=== PATIENT | female | born 1975 | race African-American/Black ===

== ENCOUNTER 2019-05-14 10:10 | Outpatient (CLI) | payer OTHER, SELFPAY ==
--- NOTE | 2019-05-19 11:25 | WPDHOLTEREM ---
Holter/Event Monitor Holter/Event Monitor Date of procedure: 05/19/19 Procedure Type: 48 hour Holter monitor Diagnosis: dizziness Indications: dizziness Image/Tracing Quality: adequate Finding: Predominant underlying rhythm was sinus rhythm, with episodes of sinus bradycardia and tachycardia; heart rate ranges between 53 beats per minute 146 beats per minute, average heart rate 88 beats per minute. occasional supraventricular ectopy was seen in the form of PACs. Longest R to R interval was 1.3 seconds. No other significant arrhythmias or heart blocks were noted. Patient did not report any symptoms in the patient diary. Conclusion: 1. Predominant underlying rhythm is sinus rhythm, heart rate ranges between 53 beats per minute to 146 beats per minute, average heart rate 88 beats per minute. 2. Occasional supraventricular ectopy was seen in the form of isolated PACs. No other significant arrhythmias or heart blocks were noted. 3. Patient did not report any symptoms in the patient diary.
== END 2019-05-14 10:11 | disposition home or self-care (01) ==
PROVIDERS: Visit Provider Physician Assistant
DX: R42 Dizziness and giddiness (principal); I10 Essential (primary) hypertension; E78.5 Hyperlipidemia, unspecified
CPT/HCPCS: 93225; 93226

== ENCOUNTER 2021-01-20 07:45 | Outpatient (CLI) | payer OTHER, SELFPAY | END 2021-01-20 07:46 | disposition home or self-care (01) | LOC: ANHAUDIO 07:46 | PROVIDERS: PCP Nurse Practitioner Family; Visit Provider Nurse Practitioner Family | DX: H90.3 Sensorineural hearing loss, bilateral (principal) | CPT/HCPCS: 92540 ==

== ENCOUNTER 2021-04-18 12:47 | Outpatient (CLI) | payer OTHER, SELFPAY | END 2021-04-18 12:48 | disposition home or self-care (01) | LOC: ANHBWCAUD 12:48 | PROVIDERS: PCP Nurse Practitioner Family; Visit Provider Nurse Practitioner Family | DX: H90.3 Sensorineural hearing loss, bilateral (principal) | CPT/HCPCS: 92557; 92567 ==

== ENCOUNTER 2022-08-06 10:02 | Emergency (ER) | payer OTHER, SELFPAY ==
--- NOTE | 2022-08-06 10:07 | ED.BACK ---
HPI - Back Pain/Injury General Chief Complaint: Back Pain/Injury Stated Complaint: Low Back Pain Time Seen by Provider: 08/06/22 10:07 Source: patient and RN notes reviewed History of Present Illness HPI Narrative: Patient is a 46-year-old female who presents to the Urgent Care with complaints of mid to low back pain. Patient states her back pain is chronic due to degenerative disc disease and she does ambulate with a cane. Patient states she has been taking Flexeril since Saturday without much relief. Patient denies any recent re-injury or trauma to cause the back pain. Denies any urinary symptoms. Denies any radiation of the pain. Patient states that she called off work and was needing a work note for the day. No other acute complaints. No acute distress noted. Patient aware of the plan of care. Some parts of this dictation were generated by voice recognition software and may contain typographical and/or grammatical inaccuracies. Related Data Home Medications Medication Instructions Recorded Confirmed cyclobenzaprine 10 mg tablet 10 mg PO DIRECTED 08/06/22 08/06/22 dulaglutide 1.5 mg/0.5 mL 1.5 mg subcut DIRECTED 08/06/22 08/06/22 subcutaneous pen injector (Trulicity) famotidine 20 mg tablet 20 mg PO DIRECTED 08/06/22 08/06/22 metoprolol succinate 200 mg 200 mg PO DIRECTED 08/06/22 08/06/22 tablet,extended release 24 hr rosuvastatin 40 mg tablet 40 mg PO DIRECTED 08/06/22 08/06/22 Allergies Allergy/AdvReac Type Severity Reaction Status Date / Time No Known Allergies Allergy Verified 08/06/22 10:27 Review of Systems Review of Systems: CONSTITUTIONAL: Denies fever, chills, or sweats. EYES: Denies visual changes, redness, or discharge. ENT: Denies rhinorrhea, congestion, sore throat, or otalgia. CARDIOVASCULAR: Denies chest pain, palpitations, or edema. RESPIRATORY: Denies cough or dyspnea. GASTROINTESTINAL: Denies abdominal pain, nausea, vomiting, or diarrhea. GENITOURINARY: Denies dysuria or hematuria. SKIN: Denies rash or itching. MUSCULOSKELETAL: Reports of acute on chronic mid to low back pain NEUROLOGIC: Denies headache, numbness, or weakness. All other systems reviewed are negative, except as documented in HPI. PMFSH Past Medical History Medical History (Updated 08/06/22 @ 10:48 by RAEANN Vargas) History of blood transfusion HLD (hyperlipidemia) HTN (hypertension) Surgical History Surgical History H/O: hysterectomy Social History Social History Second hand tobacco smoke exposure: Yes Gender identity (if verbalized by the patient): Female Comments At the time of my signature, I reviewed and agree with the nursing past medical, surgical, social, and family history. There is no relevant family history pertinent to the patient complaint. Exam Narrative: GENERAL: This is a well-nourished, well-developed patient, in no apparent distress. HEAD: normocephalic, atraumatic. EYES: PERRL. Sclera clear/white. Vision is grossly intact. EARS: External ears normal NOSE: External nose normal with no obvious nasal discharge, nares without redness, no rhinorrhea. THROAT: Mucous membranes moist NECK: Neck supple SKIN: warm, intact with no suspicious lesions or rash, good texture and turgor. NEURO: awake, alert, and oriented to person, place and time. There were no obvious focal neurologic abnormalities. EXTREMITIES: No clubbing, cyanosis, or edema. No joint tenderness, effusion, or edema noted. BACK: No crepitus or reproducible pain on palpation. Pain exacerbated with twisting or bending motion Course Course Level of Care: Express Care Visit Vital Signs Vital signs: Vital Signs Temperature 97.8 F 08/06/22 10:12 Pulse Rate 85 08/06/22 10:12 Respiratory Rate 20 08/06/22 10:12 Blood Pressure 123/91 H 08/06/22 10:12 Pulse Oximetry 100 08/06/22 10:12
[2022-08-06 10:12] VITALS: BP 123/91; PULSE 85; RESP 20; TEMP 36.6; O2SAT 100
== END 2022-08-06 10:56 | disposition home or self-care (01) ==
PROVIDERS: Emergency Provider Nurse Practitioner Family; PCP Internal Medicine
DX: G89.29 Other chronic pain (principal); M54.50 Low back pain, unspecified; E78.5 Hyperlipidemia, unspecified; I10 Essential (primary) hypertension
CPT/HCPCS: 99213; G0463

== ENCOUNTER 2023-12-05 13:45 | Emergency (ER) | payer OTHER, BC, SELFPAY ==
[2023-12-05 13:50] VITALS: BP 155/95; PULSE 67; RESP 16; TEMP 36.8; O2SAT 100
--- NOTE | 2023-12-05 14:09 | ED.URI ---
HPI - URI/Sore Throat General Chief Complaint: Upper Respiratory Infection Stated Complaint: sore throat Time Seen by Provider: 12/05/23 14:09 Source: patient, RN notes reviewed and old records reviewed Mode of arrival: ambulatory Limitations: no limitations History of Present Illness HPI Narrative: 48-year-old female presents to the [facility] with complaints of a sore throat that started just prior to arrival. States that she is taking stuff [id number] but unsure of what she has taken Patient is not a good historian. Onset (ago): hour(s) Related Data Home Medications Medication Instructions Recorded Confirmed cyclobenzaprine 10 mg tablet 10 mg PO DIRECTED 08/06/22 12/05/23 famotidine 20 mg tablet 20 mg PO BID 08/06/22 12/05/23 metoprolol succinate 200 mg 200 mg PO DAILY 08/06/22 12/05/23 tablet,extended release 24 hr atorvastatin 10 mg tablet 10 mg PO DAILY 12/05/23 12/05/23 cyanocobalamin (vitamin B-12) 1,000 mcg PO DAILY 12/05/23 12/05/23 1,000 mcg tablet dicyclomine 10 mg capsule 10 mg PO TID 12/05/23 12/05/23 ergocalciferol (vitamin D2) 1,250 1,250 mcg PO WEEKLY 12/05/23 12/05/23 mcg (50,000 unit) capsule ezetimibe 10 mg tablet 10 mg PO DAILY 12/05/23 12/05/23 metformin 500 mg tablet,extended 500 mg PO DAILY 12/05/23 12/05/23 release 24 hr Allergies Allergy/AdvReac Type Severity Reaction Status Date / Time No Known Allergies Allergy Verified 08/06/22 10:27 Review of Systems Review of Systems: All systems reviewed & are unremarkable except as noted in HPI and below Constitutional: Constitutional: Reports no additional constitutional complaints Eyes: Eyes: Reports no additional eye complaints ENT: Reports as per HPI and Reports sore throat Cardiovascular: Cardiovascular: Reports no additional cardiovascular complaints, Denies chest pain and Denies dyspnea Respiratory: Respiratory: Reports no additional respiratory complaints, Denies chest congestion, Denies cough and Denies dyspnea Gastrointestinal: Gastrointestinal: Reports no additional gastrointestinal complaints, Denies abdominal pain, Denies nausea and Denies vomiting Musculoskeletal: Musculoskeletal: Reports no additional musculoskeletal complaints Integumentary/Breasts: Skin/Breast: Reports system reviewed and no additional complaints, except as docu Neurologic: Reports system reviewed and no additional complaints, except as documented Psychiatric: Psychiatric: Reports no additional psychiatric complaints Allergic/Immunologic: Allergic/Immunologic: Reports no additional allergic/immunologic complaints PMFSH Past Medical History Medical History (Updated 12/05/23 @ 18:36 by Marta Tejeda APRN) History of blood transfusion HLD (hyperlipidemia) HTN (hypertension) Surgical History Surgical History H/O: hysterectomy Social History Social History Second hand tobacco smoke exposure: Yes Gender identity (if verbalized by the patient): Female Comments At the time of my signature, I reviewed and agree with the nursing past medical, surgical, social, and family history. There is no relevant family history pertinent to the patient complaint. Exam Const: General: cooperative, healthy appearing, comfortable, no acute distress, well developed, alert and well nourished Nutritional Appearance: well nourished Orientation/consciousness: patient oriented x3 Limitations: no limitations HENMT: Head: normal to inspection Ears: hearing grossly normal bilaterally, external ears normal, TM's normal bilaterally, EAC's normal, mastoids normal and no periauricular adenopathy Face/Nose/Sinus: Normal external nose present, Normal nares present, Normal nasal mucous membranes and turbinates present, normal facial exam and face symmetric Face and sinus: normal facial exam and face symmetric Mouth: Yes Normal oral and palatal muc
[2023-12-05 14:29] LABS: EDSTREPNEGPOS1 Negative
== END 2023-12-05 14:43 | disposition home or self-care (01) ==
PROVIDERS: Emergency Provider Nurse Practitioner; PCP Internal Medicine
DX: J02.9 Acute pharyngitis, unspecified (principal); E78.5 Hyperlipidemia, unspecified; I10 Essential (primary) hypertension
CPT/HCPCS: 87081; 87880; 99213; G0463